=== PATIENT | female | born 1960 | race Two or more races ===

== ENCOUNTER 2019-12-28 12:04 | Outpatient (CLI) | payer OTHER ==
[~2019-12-28 12:04] MED LIST: CELEBREX50 MG; METFORMIN HCL500 MG; NORFLEX100MG; NORVASC5 MG; ZOCOR40 MG
== END 2019-12-28 12:10 | disposition home or self-care (01) ==
LOC: RAD 12:04
DX: R07.89 Other chest pain (principal); R07.81 Pleurodynia